=== PATIENT | male | born 2000 | race Caucasian/White ===

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

== ENCOUNTER → 2022-02-09 | Outpatient (CLI) | payer OTHER ==
--- NOTE | 2022-02-10 11:20 | NM ---
EXAMINATION TYPE: NM thyroid image w uptake DATE OF EXAM: 02/10/2022 COMPARISON: NONE HISTORY: R 79.89 TECHNIQUE: Thyroid images performed after the oral administration of 314 uCi 1-123 Capsule. Uptake w as calculated at 4 and 25 hours. FINDINGS: There is symmetrical radiotracer distribution throughout the thyroid lobes. No focal hot nodule or ph otopenic defects are evident. Suprasternal notch marker was utilized. Uptake is calculated at 4 and 25 hours. Uptake at 4 hours is 14.9% which is minimally elevated. Becky l 8-14%. Uptake at 25 hours is 39.4% note. 3 mildly elevated compared to normal range. IMPRESSION: 1. Normal thyroid scan. 2. Mild elevation of thyroid uptake at 4 and 25 hours.
== END | disposition home or self-care (01) ==
LOC: RADNMMAIN 08:46
PROVIDERS: ATTEND Family Medicine
DX: R94.6 Abnormal results of thyroid function studies (principal)
CPT/HCPCS: 78014; A9516

== ENCOUNTER 2022-02-21 14:30 | Emergency (ER) | payer OTHER ==
[2022-02-21] MEDS ORDERED: SODIUM CHLORIDE 0.9% 1,000 ML IV ONE (15:10)
[2022-02-21 15:47] LABS: Basophils # (A) 0.1 k/uL (0-0.2); Basophils % (A) 0 %; Eosinophils # (A) 0.2 k/uL (0-0.7); Eosinophils % (A) 1 %; HCT 46.5 % (39.0-53.0); HGB 16.3 gm/dL (13.0-17.5); Lymphocytes # (A) 1.5 k/uL (1.0-4.8); Lymphocytes % (A) 11 %; MCH 31.5 pg (25.0-35.0); MCV 90.2 fL (80.0-100.0); Monocytes # (A) 0.7 k/uL (0-1.0); Monocytes % (A) 5 %; Neutrophils # (A) 10.5 k/uL (1.3-7.7); Neutrophils % (A) 80 %; Platelet Count 259 k/uL (150-450); RBC 5.16 m/uL (4.30-5.90); RDW 13.2 % (11.5-15.5)
[2022-02-21 15:55] LABS: ALT 21 U/L (4-49); AST 42 U/L (17-59); African American GFR (CKD) >90 (>60 ml/min/1.73 sqM); Albumin 4.5 g/dL (3.5-5.0); Alkaline Phosphatase 62 U/L (38-126); Anion Gap 5 mmol/L; Blood Urea Nitrogen 14 mg/dL (9-20); Calcium 8.8 mg/dL (8.4-10.2); Carbon Dioxide 26 mmol/L (22-30); Chloride 109 mmol/L (98-107); Glucose 75 mg/dL (74-99); Magnesium 1.9 mg/dL (1.6-2.3); Non-African American GFR(CKD) >90 (>60 ml/min/1.73 sqM); Potassium 4.7 mmol/L (3.5-5.1); Sodium 140 mmol/L (137-145); Total Bilirubin 0.6 mg/dL (0.2-1.3); Total Protein 7.5 g/dL (6.3-8.2)
--- NOTE | 2022-02-21 16:41 | ED ---
General Adult HPI - General Chief complaint: Overdose Stated complaint: AMS Time Seen by Provider: 02/21/22 14:52 Source: patient, RN notes reviewed, old records reviewed Mode of arrival: ambulatory Limitations: no limitations - History of Present Illness Initial comments: This is a 21-year-old male who is brought into the emergency department because his girlfriend thought he was altered mentally however the patient is currently alert and oriented 4 patient states he doesn't need to be or doesn't want to be here. Patient states he drank quite a bit of alcohol last night he woke up and was vomiting. Patient also states he took 2 Xanax normally only takes one. Patient denies any suicidal homicidal ideations. Patient denies any fever chills or cough per patient denies any abdominal pain. Patient's only complaint is a little bit of lower back pain. Patient states he thinks he slept wrong. Patient again has no complaints and does not believe he needs to be here. - Related Data Home Medications Medication Instructions Recorded Confirmed ALPRAZolam [Xanax] 0.5 mg PO Q6H PRN 04/26/21 04/26/21 Ibuprofen [Motrin] 800 mg PO QID PRN 04/26/21 04/26/21 oxyCODONE-APAP 10-325MG [Percocet 1 tab PO Q4H 04/26/21 04/26/21 10-325 mg] Previous Rx's Medication Instructions Recorded Ondansetron [Zofran] 4 mg PO Q8HR PRN #10 tab 04/26/21 Allergies Allergy/AdvReac Type Severity Reaction Status Date / Time No Known Allergies Allergy Verified 02/21/22 14:51 Review of Systems ROS Statement: Those systems with pertinent positive or pertinent negative responses have been documented in the HPI. ROS Other: All systems not noted in ROS Statement are negative. Past Medical History Past Medical History: Asthma Additional Past Medical History / Comment(s): Hx seasonal allgeries, asthma when younger. c/o indigestion, NVD for past 3 months. History of Any Multi-Drug Resistant Organisms: None Reported Past Surgical History: No Surgical Hx Reported Additional Past Surgical History / Comment(s): median arcuate ligament release 05/2021 Past Anesthesia/Blood Transfusion Reactions: No Reported Reaction Additional Past Anesthesia/Blood Transfusion Reaction / Comment(s): no previous anesthesia Past Psychological History: No Psychological Hx Reported Smoking Status: Never smoker Past Alcohol Use History: None Reported Past Drug Use History: Marijuana - Past Family History Mother Family Medical History: No Reported History General Exam - General Exam Comments Initial Comments: GENERAL: Patient is well-developed and well-nourished. Patient is nontoxic and well- hydrated and is in no acute distress. ENT: Neck is soft and supple. No significant lymphadenopathy is noted. Oropharynx is clear. Moist mucous membranes. Neck has full range of motion without eliciting any pain. EYES: The sclera were anicteric and conjunctiva were pink and moist. Extraocular movements were intact and pupils were equal round and reactive to light. Eyelids were unremarkable. PULMONARY: Unlabored respirations. Good breath sounds bilaterally. No audible rales rhonchi or wheezing was noted. CARDIOVASCULAR: There is a regular rate and rhythm without any murmurs gallops or rubs. ABDOMEN: Soft and nontender with normal bowel sounds. SKIN: Skin is clear with no lesions or rashes and otherwise unremarkable. NEUROLOGIC: Patient is alert and oriented x3. Cranial nerves II through XII are grossly intact. Motor and sensory are also intact. Normal speech, volume and content. Symmetrical smile. MUSCULOSKELETAL: Normal extremities with adequate strength and full range of motion. LYMPHATICS: No significant lymphadenopathy is noted PSYCHIATRIC: Normal psychiatric evaluation. Limitations: no limitations Course Vital Signs 02/21/22 14:47 Temperature 98.4 F Pulse Rate 80 Respiratory 20 Rate Blood Pressure 134/89 O2 Sat by Pulse 99 Oximetry Medical Decision Making - Lab Data Result diagrams: 02/21/22 15:42 02/21/22 15:42 Lab Results 02/21/22 02/21/22 02/21/22 Range/Units 15:42 15:42 16:47 WBC 13.0 H (4.0-11.0) k/uL RBC 5.16 (4.30-5.90) m/uL Hgb 16.3 (13.0-17.5) gm/dL Hct 46.5 (39.0-53.0) % MCV 90.2 (80.0-100.0) fL MCH 31.5 (25.0-35.0) pg MCHC 35.0 (31.0-37.0) g/dL RDW 13.2 (11.5-15.5) % Plt Count 259 (150-450) k/uL MPV 8.0 Neutrophils % 80 % Lymphocytes % 11 % Monocytes % 5 % Eosinophils % 1 % Basophils % 0 % Neutrophils # 10.5 H (1.3-7.7) k/uL Lymphocytes # 1.5 (1.0-4.8) k/uL Monocytes # 0.7 (0-1.0) k/uL Eosinophils # 0.2 (0-0.7) k/uL Basophils # 0.1 (0-0.2) k/uL Sodium 140 (137-145) mmol/L Potassium 4.7 (3.5-5.1) mmol/L Chloride 109 H (98-107) mmol/L Carbon Dioxide 26 (22-30) mmol/L Anion Gap 5 mmol/L BUN 14 (9-20) mg/dL Creatinine 0.75 (0.66-1.25) mg/dL Est GFR (CKD-EPI)AfAm >90 (>60 ml/min/1.73 sqM) Est GFR (CKD-EPI)NonAf >90 (>60 ml/min/1.73 sqM) Glucose 75 (74-99) mg/dL Calcium 8.8 (8.4-10.2) mg/dL Magnesium 1.9 (1.6-2.3) mg/dL Total Bilirubin 0.6 (0.2-1.3) mg/dL AST 42 (17-59) U/L ALT 21 (4-49) U/L Alkaline Phosphatase 62 (38-126) U/L Total Protein 7.5 (6.3-8.2) g/dL Albumin 4.5 (3.5-5.0) g/dL Urine Opiates Screen Not Detected (NotDetected) Ur Oxycodone Screen Not Detected (NotDetected) Urine Methadone Screen Not Detected (NotDetected) Ur Propoxyphene Screen Not Detected (NotDetected) Ur Barbiturates Screen Not Detected (NotDetected) U Tricyclic Antidepress Not Detected (NotDetected) Ur Phencyclidine Scrn Not Detected (NotDetected) Ur Amphetamines Screen Not Detected (NotDetected) U Methamphetamines Scrn Not Detected (NotDetected) U Benzodiazepines Scrn Detected H (NotDetected) Urine Cocaine Screen Not Detected (NotDetected) U Marijuana (THC) Screen Detected H (NotDetected) Disposition Clinical Impression: Alcohol abuse, Vomiting, Benzodiazepine abuse Disposition: HOME SELF-CARE Condition: Good Instructions (If sedation given, give patient instructions): Abuse of Alcohol (DC) Additional Instructions: Patient should take his Xanax as prescribed only. Patient should not examine well alcohol. Is patient prescribed a controlled substance at d/c from ED?: No Referrals: Samuel Milton MD [Primary Care Provider] - 1-2 days Time of Disposition: 17:00
[2022-02-21 17:01] LABS: Amphetamine Screen,Urine Not Detected (NotDetected); Barbiturate Screen,Urine Not Detected (NotDetected); Benzodiazepines Screen,Urine Detected (NotDetected); Cocaine Screen,Urine Not Detected (NotDetected); Methadone Screen, Urine Not Detected (NotDetected); Opiate Screen,Urine Not Detected (NotDetected); Oxycodone Screen, Urine Not Detected (NotDetected); Phencyclidine Screen,Urine Not Detected (NotDetected); Tricyclic Antidepressant,Urine Not Detected (NotDetected); Urn Cannabinoid Scrn Detected (NotDetected)
[2022-02-21 17:35] VITALS: RESP 13
[2022-02-21 17:37] VITALS: BP 121/69; PULSE 83; TEMP 98.6
== END 2022-02-21 17:37 | disposition home or self-care (01) ==
LOC: EC 14:30
DX: F10.10 Alcohol abuse, uncomplicated (principal); F13.10 Sedative, hypnotic or anxiolytic abuse, uncomplicated; F12.90 Cannabis use, unspecified, uncomplicated; J45.909 Unspecified asthma, uncomplicated
CPT/HCPCS: 36415; 80053; 80306; 83735; 85025; 96360; 99283

== ENCOUNTER 2022-05-30 06:34 | Observation (INO) | payer OTHER ==
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
[2022-05-30] MEDS ORDERED: SODIUM CHLORIDE 0.9% 1,000 ML IV STA ×2 (08:01→10:05)
[2022-05-30 08:06] LABS: ALT 23 U/L (4-49); AST 29 U/L (17-59); Acetaminophen <10.0 ug/mL; African American GFR (CKD) >90 (>60 ml/min/1.73 sqM); Alcohol 74 mg/dL; Alkaline Phosphatase 80 U/L (38-126); Anion Gap 13 mmol/L; Blood Urea Nitrogen 12 mg/dL (9-20); Calcium 9.6 mg/dL (8.4-10.2); Carbon Dioxide 25 mmol/L (22-30); Chloride 105 mmol/L (98-107); Glucose 113 mg/dL (74-99); Non-African American GFR(CKD) >90 (>60 ml/min/1.73 sqM); Potassium 4.2 mmol/L (3.5-5.1); Salicylate <1.0 mg/dL; Sodium 143 mmol/L (137-145); Total Bilirubin 0.7 mg/dL (0.2-1.3); Total Protein 8.7 g/dL (6.3-8.2)
[2022-05-30 08:22] LABS: Basophils % (A) 0 %; Eosinophils % (A) 0 %; HCT 46.8 % (39.0-53.0); Lymphocytes # (A) 1.1 k/uL (1.0-4.8); Lymphocytes % (A) 13 %; MCH 30.3 pg (25.0-35.0); MCHC 34.1 g/dL (31.0-37.0); MCV 88.8 fL (80.0-100.0); Mean Platelet Volume 7.5; Monocytes # (A) 0.4 k/uL (0-1.0); Monocytes % (A) 5 %; Neutrophils # (A) 6.6 k/uL (1.3-7.7); Neutrophils % (A) 80 %; Platelet Count 256 k/uL (150-450); RBC 5.27 m/uL (4.30-5.90); RDW 13.1 % (11.5-15.5); WBC 8.2 k/uL (4.0-11.0)
[2022-05-30] MEDS ORDERED: NALOXONE 0.4 MG/ML 1 ML VIAL IV PRN (11:17)
[2022-05-30 11:22] LABS: Amphetamine Screen,Urine Not Detected (NotDetected); Barbiturate Screen,Urine Not Detected (NotDetected); Benzodiazepines Screen,Urine Detected (NotDetected); Cocaine Screen,Urine Not Detected (NotDetected); Methadone Screen, Urine Not Detected (NotDetected); Opiate Screen,Urine Not Detected (NotDetected); Oxycodone Screen, Urine Detected (NotDetected); Phencyclidine Screen,Urine Not Detected (NotDetected); Tricyclic Antidepressant,Urine Not Detected (NotDetected); Urn Cannabinoid Scrn Detected (NotDetected)
[2022-05-30] MEDS: SODIUM CHLORIDE 0.9% 1,000 ML IV SCH (11:32)
[2022-05-30] MEDS ORDERED: ONDANSETRON 4 MG/2 ML VIAL IVP STA (17:47)
[2022-05-30] MEDS: ACETAMINOPHEN TAB 325 MG TAB PO PRN (20:45)
[2022-05-31] MEDS: SODIUM CHLORIDE 0.9% 1,000 ML IV SCH ×2 (03:18→15:33)
[2022-05-31] MEDS ORDERED: traZODone HCL 50 MG TAB PO PRN (14:29)
[2022-05-31] MEDS: chlordiazePOXIDE 25 MG CAP PO SCH ×2 (17:27→21:04)
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
[2022-05-31] MEDS: ACETAMINOPHEN TAB 325 MG TAB PO PRN (19:49)
[2022-05-31] MEDS: hydrOXYzine pamoate 25 MG CAP PO PRN (19:49)
[2022-06-01] MEDS: SODIUM CHLORIDE 0.9% 1,000 ML IV SCH ×2 (06:34→16:21)
[2022-06-01] MEDS: PANTOPRAZOLE 40 MG TABLET PO SCH (07:56)
[2022-06-01] MEDS: ACETAMINOPHEN TAB 325 MG TAB PO PRN ×2 (07:57→14:06)
[2022-06-01] MEDS: chlordiazePOXIDE 25 MG CAP PO SCH ×3 (07:57→22:02)
[2022-06-01] MEDS: hydrOXYzine pamoate 25 MG CAP PO PRN (18:28)
--- NOTE | 2022-06-02 05:59 | PN ---
PROGRESS NOTE DATE OF SERVICE: 05/31/2022 CHIEF COMPLAINT: Drug overdose. HISTORY OF PRESENT ILLNESS: This gentleman is awake now. He is resting comfortably in bed with a sitter. PHYSICAL EXAMINATION: VITAL SIGNS: Normal. CHEST: Clear. CARDIAC: Normal. ABDOMEN: Soft, nontender. IMPRESSION: Drug overdose. PLAN: Await psychiatric evaluation. MMODL / IJN: [id number] /
--- NOTE | 2022-06-02 07:18 | DS ---
DISCHARGE SUMMARY CHIEF COMPLAINT: Overdose. HISTORY OF PRESENT ILLNESS AND PHYSICAL EXAM: Details of this man's history and physical can be found in the initial workup. LABORATORY STUDIES: While he was in the hospital, he had laboratory studies, details of which can be found in the laboratory section of his chart. COURSE IN THE HOSPITAL: After admission, he was placed on bedrest on suicide precaution. He was seen by Psychiatry, who initially indicated that he did not meet criteria for inpatient psych care. Then, it was indicated that they would take him on the psych floor. He was stable, awake and alert without any medical issues or problems and normal vital signs and will be transferred there on the . FINAL DIAGNOSES: 1. Drug ingestion overdose. 2. Depression. 3. Borderline personality. OPERATIONS: None. CONSULTATIONS: Psychiatry. He is improved. CLAUDIA / ANEL: [id number] /
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
[2022-06-02] MEDS: SODIUM CHLORIDE 0.9% 1,000 ML IV SCH (08:44)
[2022-06-02] MEDS: PANTOPRAZOLE 40 MG TABLET PO SCH (10:02)
[2022-06-02] MEDS: chlordiazePOXIDE 25 MG CAP PO SCH (10:02)
[2022-06-02 13:48] VITALS: BP 139/77; PULSE 71; RESP 18; TEMP 98.1
--- NOTE | 2022-06-03 19:10 | PN ---
PROGRESS NOTE DATE OF SERVICE: 06/02/2022 CHIEF COMPLAINT: Depression with suicidal attempt and overdose. HISTORY OF PRESENT ILLNESS: This gentleman was not discharged to psych yesterday, and he is going today. Vital signs are normal, and physical exam is unchanged. IMPRESSION: 1. Major depression. 2. Status post overdose. 3. Suicidal personality. PLAN: He can be moved to Psych Service any time. MMODL / IJN: [id number] /
== END 2022-06-02 13:57 ==
LOC: EC 06:34 → INTOOBSV 10:00 → 3SCARD 10:00 → 5NMEDONC 17:48 → UNDODISIN 06-02 13:57
PROVIDERS: ADMIT Family Medicine; ATTEND Family Medicine
DX: R40.0 Somnolence (principal); T42.4X2A Poisoning by benzodiazepines, intentional self-harm, initial encounter; T40.2X2A Poisoning by other opioids, intentional self-harm, initial encounter; F10.10 Alcohol abuse, uncomplicated; F32.A Depression, unspecified; F15.10 Other stimulant abuse, uncomplicated; F41.9 Anxiety disorder, unspecified; J45.909 Unspecified asthma, uncomplicated; F60.3 Borderline personality disorder; F17.200 Nicotine dependence, unspecified, uncomplicated; Y90.3 Blood alcohol level of 60-79 mg/100 ml; Z20.822 Contact with and (suspected) exposure to COVID-19; Z79.51 Long term (current) use of inhaled steroids; Z79.899 Other long term (current) drug therapy
CPT/HCPCS: 82075; 96361; 96374; 99285; 36415; 94760 ×2; 93005; 80053; 85025; 80306; 80143; 87635; 80179; G0378 ×4; G0480; J2405; 80320